=== PATIENT | male | born 1985 | race Caucasian/White ===

== ENCOUNTER 2019-08-27 15:08 | Emergency (ER) | payer SELFPAY ==
[2019-08-27 15:48] VITALS: BP 120/72; PULSE 100
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
== END 2019-08-27 18:58 | disposition home or self-care (01) ==
LOC: JD.ED 15:08
DX: T33.832A Superficial frostbite of left toe(s), initial encounter (principal); T33.831A Superficial frostbite of right toe(s), initial encounter; F17.210 Nicotine dependence, cigarettes, uncomplicated; Z88.0 Allergy status to penicillin; X31.XXXA Exposure to excessive natural cold, initial encounter
CPT/HCPCS: 99282; 99283

== ENCOUNTER 2021-04-23 19:17 | Emergency (ER) | payer MEDICAID ==
[2021-04-23 19:37] VITALS: BP 142/89; PULSE 81
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
[2021-04-23] MEDS ORDERED: Sodium Chloride 0.9% 1,000 ML IV SCH (20:15)
[2021-04-23] MEDS ORDERED: Iopamidol 612 MG/ML 100 ML Bottle IVPUSH ONE (20:31)
[2021-04-23] MEDS ORDERED: Sodium Chloride 0.9% 10 ML SDV FLUSH ONE (20:31)
--- NOTE | 2021-04-24 06:18 | CT ---
Soft tissue neck CT Technique: Multiple axial sections through the neck were obtained. Intravenous contrast was utilized. Reconstructed coronal and sagittal images were obtained. Comparison: No prior neck imaging is available. Findings: Visualized paranasal sinuses and mastoid sinuses show nothing acute. Parapharyngeal soft tissues are symmetric between right and left sides. Parotid and submandibular salivary glands are within normal limits. Normal enhancing vascular structures are seen. No adenopathy is seen within the neck. Thyroid gland shows no abnormality. Visualized lung apices show nothing acute. No bony fracture is seen. Trachea appears within normal limits. Prevertebral soft tissues show no abnormality. Epiglottis appears within normal limits. Bone window settings were reviewed which show flexion within the cervical spine which is most likely positional. Minimal disc space narrowing is noted within the spine. Impression: 1. Flexion within the cervical spine which is most likely positional. Minimal disc space narrowing is also noted within the spine. 2. Other portions of the CT study of the neck appear within normal limits. Diagnostic code #2 I agree with preliminary report from [facility], finalized on 04/23/21, 10:28 PM CDT, code 1
== END 2021-04-23 22:00 | disposition home or self-care (01) ==
LOC: JD.ED 19:17
DX: S10.0XXA Contusion of throat, initial encounter (principal); Z88.0 Allergy status to penicillin; Z72.0 Tobacco use; Y04.0XXA Assault by unarmed brawl or fight, initial encounter
CPT/HCPCS: 70491; 99284; Q9967

== ENCOUNTER 2023-04-11 16:37 | Emergency (ER) | payer MEDICAID ==
[2023-04-11] MEDS ORDERED: Lidocaine 1% 10 ML MDV INJECT ONE (18:59)
[2023-04-11 19:37] VITALS: BP 128/81; PULSE 80
== END 2023-04-11 19:34 | disposition home or self-care (01) ==
LOC: JD.ED 16:37
DX: S62.633B Displaced fracture of distal phalanx of left middle finger, initial encounter for open fracture (principal); S61.213A Laceration without foreign body of left middle finger without damage to nail, initial encounter; Z88.0 Allergy status to penicillin; W23.0XXA Caught, crushed, jammed, or pinched between moving objects, initial encounter
CPT/HCPCS: 12001; 73140-26-F2; 73140-F2; 99283; J3490